=== PATIENT | male | born 1995 | race Two or more races ===

== ENCOUNTER 2018-02-06 21:03 | Emergency (ER) | payer SELFPAY ==
--- NOTE | 2018-02-06 21:08 | EDM.PDOC ---
ED HPI GENERAL MEDICAL PROBLEM - General Chief Complaint: Genitourinary Problem Stated Complaint: TESTICULAR PAIN Time Seen by Provider: 02/06/18 21:08 Source of Information: Reports: Patient - History of Present Illness INITIAL COMMENTS - FREE TEXT/NARRATIVE: HISTORY AND PHYSICAL: History of present illness: [Patient presents with 6 days of testicular pain right greater than left no fever nausea vomiting chills sweats no discharge denies injury or trauma] Review of systems: As per history of present illness and below otherwise all systems reviewed and negative. Past medical history: As per history of present illness and as reviewed below otherwise noncontributory. Surgical history: As per history of present illness and as reviewed below otherwise noncontributory. Social history: No reported history of drug or alcohol abuse. Family history: As per history of present illness and as reviewed below otherwise noncontributory. Physical exam: HEENT: Atraumatic, normocephalic, pupils reactive, negative for conjunctival pallor or scleral icterus, mucous membranes moist, throat clear, neck supple, nontender, trachea midline. Lungs: Clear to auscultation, breath sounds equal bilaterally, chest nontender. Heart: S1S2, regular, negative for clicks, rubs, or JVD. Abdomen: Soft, nondistended, nontender. Negative for masses or hepatosplenomegaly. Negative for costovertebral tenderness. Pelvis: Stable nontender. Genitourinary: Testicle on the right is more tender than the left slightly enlarged not high riding does not appear to be torsed this time Rectal: Deferred. Extremities: Atraumatic, negative for cords or calf pain. Neurovascular unremarkable. Neuro: Awake, alert, oriented. Cranial nerves II through XII unremarkable. Cerebellum unremarkable. Motor and sensory unremarkable throughout. Exam nonfocal. 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 Chavis ] Definitive disposition and diagnosis as appropriate pending reevaluation and review of above. - Related Data Allergies Allergy/AdvReac Type Severity Reaction Status Date / Time No Known Allergies Allergy Verified 07/23/17 14:37 Home Meds: Home Meds . [No Known Home Meds] 07/23/17 [History] Past Medical History - Past Health History Medical/Surgical History: Denies Medical/Surgical History Social & Family History - Caffeine Use Caffeine Use: Reports: None ED ROS GENERAL - Review of Systems Review Of Systems: ROS reveals no pertinent complaints other than HPI. ED EXAM, GENERAL - Physical Exam Exam: See Below Course - Vital Signs Last Recorded V/S: Last Vital Signs Temp 97.7 F 02/06/18 21:38 Pulse 74 02/06/18 21:38 Resp 16 02/06/18 21:38 BP 127/79 02/06/18 21:38 Pulse Ox 98 02/06/18 21:38 - Orders/Labs/Meds Orders: Active Orders 24 hr Category Date Time Status Scrotal Duplex Ltd [US] Routine Exams 02/06/18 Taken Scrotum and Contents [US] Stat Exams 02/06/18 21:41 Taken CHLAMYDIA AND GONORRHEA BY TMA Stat Lab 02/06/18 21:21 Received CULTURE URINE [RM] Stat Lab 02/06/18 21:21 Received UA W/MICROSCOPIC [URIN] Stat Lab 02/06/18 21:21 Ordered Labs: Laboratory Tests 02/06/18 Range/Units 21:21 Urine Color YELLOW Urine Appearance CLEAR Urine pH 7.0 (5.0-8.0) Ur Specific [place] 1.020 (1.001-1.035) Urine Protein NEGATIVE (NEGATIVE) mg/dL Urine Glucose (UA) NEGATIVE (NEGATIVE) mg/dL Urine Ketones NEGATIVE (NEGATIVE) mg/dL Urine Occult Blood NEGATIVE (NEGATIVE) Urine Nitrite NEGATIVE (NEGATIVE) Urine Bilirubin NEGATIVE (NEGATIVE) Urine Urobilinogen 0.2 (<2.0) EU/dL Ur Leukocyte Esterase NEGATIVE (NEGATIVE) Urine RBC 0-1 (0-2/HPF) Urine WBC 0-1 (0-5/HPF) Ur Epithelial Cells RARE (NONE-FEW) Urine Bacteria RARE (NEGATIVE) Meds: Medications Discontinued Medications Generic Name Dose Route Start Last Admin Trade Name Freq PRN Reason Stop Dose Admin Azithromycin 1,000 mg 02/06/18 23:07 Zithromax PO 02/06/18 23:08 NOW STA Ceftriaxone Sodium 250 mg/ 1 mls @ 1 mls/sec 02/06/18 23:07 Lidocaine HCl IM 02/06/18 23:08 ONETIME ONE Departure - Departure Time of Disposition: 23:35 Disposition: Home, Self-Care 01 Condition: Good Clinical Impression: Orchitis - Discharge Information Referrals: PCP,None [Primary Care Provider] - Forms: ED Department Discharge Additional Instructions: Follow-up with Dr. Chavis urology clinic 10:30 AM tomorrow No food water etc. nothing by mouth after midnight tonight until you are seen by Dr. Chavis in the morning Medication as prescribed [facility] - Urology [address] [place] [id number] The following information is given to patients seen in the emergency department who are being discharged to home. This information is to outline your options for follow-up care. We provide all patients seen in our emergency department with a follow-up referral. The need for follow-up, as well as the timing and circumstances, are variable depending upon the specifics of your emergency department visit. If you don't have a primary care physician on staff, we will provide you with a referral. We always advise you to contact your personal physician following an emergency department visit to inform them of the circumstance of the visit and for follow-up with them and/or the need for any referrals to a consulting specialist. The emergency department will also refer you to a specialist when appropriate. This referral assures that you have the opportunity for follow-up care with a specialist. All of these measure are taken in an effort to provide you with optimal care, which includes your follow-up. Under all circumstances we always encourage you to contact your private physician who remains a resource for coordinating your care. When calling for follow-up care, please make the office aware that this follow-up is from your recent emergency room visit. If for any reason you are refused follow-up, please contact the [facility] emergency department at and asked to speak to the emergency department charge nurse. - My Orders Last 24 Hours: My Active Orders 02/06/18 Scrotal Duplex Ltd [US] Routine 02/06/18 21:21 CHLAMYDIA AND GONORRHEA BY TMA Stat CULTURE URINE [RM] Stat UA W/MICROSCOPIC [URIN] Stat 02/06/18 21:41 Scrotum and Contents [US] Stat - Assessment/Plan Last 24 Hours: My Active Orders 02/06/18 Scrotal Duplex Ltd [US] Routine 02/06/18 21:21 CHLAMYDIA AND GONORRHEA BY TMA Stat CULTURE URINE [RM] Stat UA W/MICROSCOPIC [URIN] Stat 02/06/18 21:41 Scrotum and Contents [US] Stat
[2018-02-06] MEDS ORDERED: cefTRIAXone 250 MG in Lidocaine 1% 1 ML IM ONE (23:07)
[2018-02-06] MEDS ORDERED: Azithromycin 250 MG Tab PO STA (23:07)
--- NOTE | 2018-02-07 13:15 | US ---
EXAM DATE: 02/06/18 PATIENT'S AGE: 22 Patient: CINDI BERMUDEZ Facility: [place], [place] Site . Site : 1995 Study: US Testicle [id number] 10:52:10 PM Ordering Physician: Bryan Braxton Final Report: INDICATION: LT TESTICULAR PAIN X 6 DAYS SCROTAL ULTRASOUND Multiple sonographic images of the scrotum were performed. The testes appear mildly asymmetric in size with the right testis measuring 4.4 x 2.8 x 2.8 centimeters and the left testis measuring 3.3 x 2.6 x 1.9 centimeters. Testicular parenchyma is homogeneous bilaterally. No intratesticular masses are seen. Intratesticular Doppler blood flow is demonstrated bilaterally and is mildly decreased within the left testis compared to the right testis. The epididymides are within normal limits. No significant hydroceles are identified. IMPRESSION: Mildly decreased size of the left testis compared to the right testis, and mildly decreased Doppler blood flow within the left testis compared to the right testis. Differential considerations include mild partial or incomplete left testicular torsion, mild left testicular hypoplasia or atrophy, and right-sided orchitis. Clinical correlation is recommended and urology consultation should be considered. SENG MAHER MD [employer] Dictated by Luciano Maher MD @ 02/06/2018 11:09:59 PM Dictated by: Luciano Maher MD @ 02/06/2018 23:11:40 (Electronic Signature) Report Signed by Proxy. SADIA
--- NOTE | 2018-02-07 13:15 | US ---
EXAM DATE: 02/06/18 PATIENT'S AGE: 22 Patient: CINDI BERMUDEZ Facility: [place], [place] Site . Site : 1995 Study: US Testicle [id number]/2018 10:52:10 PM Ordering Physician: Bryan Braxton Final Report: INDICATION: LT TESTICULAR PAIN X 6 DAYS SCROTAL ULTRASOUND Multiple sonographic images of the scrotum were performed. The testes appear mildly asymmetric in size with the right testis measuring 4.4 x 2.8 x 2.8 centimeters and the left testis measuring 3.3 x 2.6 x 1.9 centimeters. Testicular parenchyma is homogeneous bilaterally. No intratesticular masses are seen. Intratesticular Doppler blood flow is demonstrated bilaterally and is mildly decreased within the left testis compared to the right testis. The epididymides are within normal limits. No significant hydroceles are identified. IMPRESSION: Mildly decreased size of the left testis compared to the right testis, and mildly decreased Doppler blood flow within the left testis compared to the right testis. Differential considerations include mild partial or incomplete left testicular torsion, mild left testicular hypoplasia or atrophy, and right-sided orchitis. Clinical correlation is recommended and urology consultation should be considered. SENG MAHER MD [employer] Dictated by Luciano Maher MD @ 02/06/2018 11:09:59 PM Dictated by: Luciano Maher MD @ 02/06/2018 23:11:40 (Electronic Signature) Report Signed by Proxy. SADIA
== END 2018-02-07 00:14 | disposition home or self-care (01) ==
LOC: MW.ED 21:03
DX: N45.2 Orchitis (principal)
CPT/HCPCS: 76870; 81001; 87086; 87491; 87591; 93976; 96372; 99284; A9270; J0696; J2001

== ENCOUNTER 2020-03-18 09:29 | Emergency (ER) | payer OTHER ==
--- NOTE | 2020-03-18 09:53 | EDM.PDOC ---
ED HPI GENERAL MEDICAL PROBLEM - General Chief Complaint: Respiratory Problem Stated Complaint: COUGH/SOB Time Seen by Provider: 03/18/20 09:32 - History of Present Illness INITIAL COMMENTS - FREE TEXT/NARRATIVE: History of present illness: Patient presents with 2 weeks of cough and chest pain with shortness of breath he denies any fever no congestion or runny nose he believes that all began after drinking a ontiveros soda. He has not had any significant travel or exposures that he is aware of no other medical problems although he states he had asthma as a child denies smoking nothing seems to make it better or worse Review of systems: As per history of present illness and below otherwise all systems reviewed and negative. Past medical history: As per history of present illness and as reviewed below otherwise noncontr ibutory. Surgical history: As per history of present illness and as reviewed below otherwise noncontributory. Social history: No reported history of drug or alcohol abuse. Family history: As per history of present illness and as reviewed below otherwise noncontributory. Physical exam: HEENT: Atraumatic, normocephalic, pupils reactive, negative for conjunctival pallor or scleral icterus, mucous membranes moist, throat clear, neck supple, nontender, trachea midline. Lungs: Clear to auscultation, breath sounds equal bilaterally, chest nontender. Heart: S1S2, regular, negative for clicks, rubs, or JVD. Abdomen: Soft, nondistended, nontender. Negative for masses or hepatosplenomegaly. Negative for costovertebral tenderness. Pelvis: Stable nontender. Genitourinary: Deferred. Rectal: Deferred. Extremities: Atraumatic, negative for cords or calf pain. Neurovascular unremarkable. Neuro: Awake, alert, oriented. Cranial nerves II through XII unremarkable. Cerebellum unremarkable. Motor and sensory unremarkable throughout. Exam nonfocal. Diagnostics: [] Therapeutics: [] Impression: Upper respiratory infection [] Plan: [] COVID testing and x-ray of the chest. Definitive disposition and diagnosis as appropriate pending reevaluation and review of above. chest Pain Score (Numeric/FACES): 4 - Related Data Allergies Allergy/AdvReac Type Severity Reaction Status Date / Time No Known Allergies Allergy Verified 03/18/20 09:57 Home Meds: Home Meds Benzonatate [Tessalon Perle] 100 mg PO Q6HR #30 capsule 03/18/20 [Rx] Naproxen Sodium [Anaprox DS] 550 mg PO BID #20 tab 03/18/20 [Rx] Past Medical History - Past Health History Medical/Surgical History: Denies Medical/Surgical History Social & Family History - Family History Family Medical History: Unobtainable - Caffeine Use Caffeine Use: Reports: None ED ROS GENERAL - Review of Systems Review Of Systems: See Below ED EXAM, GENERAL - Physical Exam Exam: See Below Course - Vital Signs Text/Narrative:: The patient was COVID tested was negative. A one-view portable chest was read and interpreted by me no acute cardiopulmonary pathology is evident. Patient stable to be discharged home with naproxen for his painful breathing and with some Tessalon for his cough he is encouraged to follow-up with a primary care doctor. Last Recorded V/S: Last Vital Signs Temp 36.4 C 03/18/20 09:40 Pulse 88 03/18/20 09:40 Resp 20 03/18/20 09:40 BP 120/76 03/18/20 09:40 Pulse Ox 93 L 03/18/20 09:40 - Orders/Labs/Meds Orders: Active Orders 24 hr Category Date Time Status Chest 1V Frontal [CR] Stat Exams 03/18/20 09:49 Ordered Labs: Laboratory Tests 03/18/20 Range/Units 10:00 SARS Virus RNA (PCR) NEGATIVE (NEGATIVE) Departure - Departure Time of Disposition: 11:25 Disposition: Home, Self-Care 01 Clinical Impression: Respiratory infection, upper Qualifiers: URI type: unspecified viral URI Qualified Code(s): J06.9 - Acute upper respiratory infection, unspecified - Discharge Information *PRESCRIPTION DRUG MONITORING PROGRAM REVIEWED*: Not Applicable *COPY OF PRESCRIPTION DRUG MONITORING REPORT IN PATIENT OLIVIA: Not Applicable Prescriptions: Naproxen Sodium [Anaprox DS] 550 mg PO BID #20 tab Benzonatate [Tessalon Perle] 100 mg PO Q6HR #30 capsule Instructions: Viral Respiratory Infection, [id number] Referrals: PCP,None [Primary Care Provider] - Forms: ED Department Discharge Additional Instructions: The following information is given to patients seen in the emergency department who are being discharged to home. This information is to outline your options for follow-up care. We provide all patients seen in our emergency department with a follow-up referral. The need for follow-up, as well as the timing and circumstances, are variable depending upon the specifics of your emergency department visit. If you don't have a primary care physician on staff, we will provide you with a referral. We always advise you to contact your personal physician following an emergency department visit to inform them of the circumstance of the visit and for follow-up with them and/or the need for any referrals to a consulting specialist. The emergency department will also refer you to a specialist when appropriate. This referral assures that you have the opportunity for follow-up care with a specialist. All of these measure are taken in an effort to provide you with optimal care, which includes your follow-up. Under all circumstances we always encourage you to contact your private physician who remains a resource for coordinating your care. When calling for follow-up care, please make the office aware that this follow-up is from your recent emergency room visit. If for any reason you are refused follow-up, please contact the [facility] Emergency Department at and asked to speak to the emergency department charge nurse. [facility] - Primary Care [address] [place] [address] [place] [address] Sepsis Event Note (ED) - Focused Exam Vital Signs: Vital Signs Temp Pulse Resp BP Pulse Ox 03/18/20 09:40 36.4 C 88 20 120/76 93 L - My Orders Last 24 Hours: My Active Orders 03/18/20 09:49 Chest 1V Frontal [CR] Stat - Assessment/Plan Last 24 Hours: My Active Orders 03/18/20 09:49 Chest 1V Frontal [CR] Stat
--- NOTE | 2020-03-18 11:35 | CR ---
Chest: Portable view of the chest was obtained. Comparison: Prior chest x-ray of 08/06/19. Heart size and mediastinum are normal. Lungs are clear with no acute parenchymal change. Bony structures are grossly intact. Impression: 1. Nothing acute is seen on portable chest x-ray. Diagnostic code #1 This report was dictated in MDT
== END 2020-03-18 11:35 | disposition home or self-care (01) ==
LOC: MW.ED 09:29
DX: J06.9 Acute upper respiratory infection, unspecified (principal); Z20.828 Contact with and (suspected) exposure to other viral communicable diseases
CPT/HCPCS: 71045; 71045-26; 99282; 99285-25; U0002

== ENCOUNTER 2020-03-20 22:50 | Emergency (ER) | payer SELFPAY ==
[2020-03-20] MEDS ORDERED: Albuterol 0.083% 2.5 MG/3 ML Neb Soln NEB ONE (23:26)
[2020-03-20] MEDS ORDERED: predniSONE 20 MG Tab PO ONE (23:26)
--- NOTE | 2020-03-20 23:28 | EDM.PDOC ---
ED HPI GENERAL MEDICAL PROBLEM - General Chief Complaint: Respiratory Problem Stated Complaint: SOB Time Seen by Provider: 03/20/20 23:02 - History of Present Illness INITIAL COMMENTS - FREE TEXT/NARRATIVE: History of present illness: She has been having trouble breathing for 3 days. He was an asthmatic as a child. He was seen here 2 days ago and had a negative COVID-19 test per patient and his sister. Patient continues have more trouble breathing with cough. He has trouble expectorating sputum. He feels tightness in his chest. The patient is worse with activity. He has no other systemic signs of illness. [] Review of systems: As per history of present illness and below otherwise all systems reviewed and negative. Past medical history: As per history of present illness and as reviewed below otherwise noncont ributory. Surgical history: As per history of present illness and as reviewed below otherwise noncontributory. Social history: No reported history of drug or alcohol abuse. Family history: As per history of present illness and as reviewed below otherwise noncontributory. Physical exam: Constitutional - well developed, well-nourished and in no acute distress HEENT - normocephalic, no evidence of trauma - external nose and mouth normal - no mass in neck and no JVD - mucosae moist EYES - full EOM, PERRL, no icterus - no evidence of inflammation, injection, or drainage Respiratory - no respiratory distress, equal bilateral expansion, lungs coarse wheezes throughout Cardiovascular - Regular Rhythm with S1 and S2 appreciated and no murmur, gallop or rub. Peripheral pulses symmetrically normal in all four extremities GI - abdomen soft without distension or organomegaly - normal bowel sounds - no guard or rebound Musculoskeletal no gross deformity of long bones or joints - no tenderness, swelling or edema Neurologic - Alert and oriented times four - CN II-XII grossly intact - motor sensory and coordination symmetrically normal Psychiatric - appropriate mood and affect with normal thought content Hematologic - No petechiae or purpura - mucosa appropriate color and sclera not pale - normal nail bed color and refill Integument - no rash or evidence of trauma - normal turgor Diagnostics: [] Therapeutics: [] Impression: [] Plan: [] Definitive disposition and diagnosis as appropriate pending reevaluation and review of above. chest and back Pain Score (Numeric/FACES): 8 - Related Data Allergies Allergy/AdvReac Type Severity Reaction Status Date / Time No Known Allergies Allergy Verified 03/20/20 23:17 Home Meds: Home Meds Benzonatate [Tessalon Perle] 100 mg PO Q6HR #30 capsule 03/18/20 [Rx] Naproxen Sodium [Anaprox DS] 550 mg PO BID #20 tab 03/18/20 [Rx] Albuterol [Ventolin HFA] 1 puff INH Q6HR PRN #1 inhaler 03/21/20 [Rx] predniSONE [Prednisone] 60 mg PO DAILY #18 tablet 03/21/20 [Rx] Past Medical History - Past Health History Medical/Surgical History: Denies Medical/Surgical History Respiratory History: Reports: Asthma - Past Surgical History Respiratory Surgical History: Reports: None Social & Family History - Family History Family Medical History: Noncontributory - Tobacco Use Smoking Status *Q: Former Smoker Used Tobacco, but Quit: Yes Month/Year Tobacco Last Used: "6months ago" - Caffeine Use Caffeine Use: Reports: Coffee - Recreational Drug Use Recreational Drug Use: No ED ROS GENERAL - Review of Systems Review Of Systems: Comprehensive ROS is negative, except as noted in HPI. ED EXAM, GENERAL - Physical Exam Exam: See Below Free Text/Narrative:: Physical exam as in the HPI. Course - Vital Signs Last Recorded V/S: Last Vital Signs Temp 97.1 F 03/20/20 23:06 Pulse 115 H 03/20/20 23:06 Resp 20 03/20/20 23:06 BP 138/87 03/20/20 23:06 Pulse Ox 93 L 03/20/20 23:06 - Orders/Labs/Meds Orders: Active Orders 24 hr Category Date Time Status Communication Order [RC] STAT Care 03/21/20 00:39 Ordered RT Aerosol Therapy [RC] ASDIRECTED Care 03/20/20 23:26 Active Meds: Medications Discontinued Medications Generic Name Dose Route Start Last Admin Trade Name Freq PRN Reason Stop Dose Admin Albuterol 2.5 mg 03/20/20 23:26 03/20/20 23:34 Proventil Neb Soln NEB 03/20/20 23:27 2.5 mg ONETIME ONE Administration Prednisone 60 mg 03/20/20 23:26 03/20/20 23:33 Prednisone PO 03/20/20 23:27 60 mg ONETIME ONE Administration Departure - Departure Time of Disposition: 00:40 Disposition: Home, Self-Care 01 Condition: Good Clinical Impression: Acute asthma - Discharge Information Prescriptions: predniSONE [Prednisone] 60 mg PO DAILY #18 tablet Albuterol [Ventolin HFA] 1 puff INH Q6HR PRN #1 inhaler PRN Reason: wheeze Instructions: Asthma, Adult, Shortness of Breath, Adult, [id number] Referrals: PCP,None [Primary Care Provider] - Forms: ED Department Discharge Additional Instructions: The following information is given to patients seen in the emergency department who are being discharged to home. This information is to outline your options for follow-up care. We provide all patients seen in our emergency department with a follow-up referral. The need for follow-up, as well as the timing and circumstances, are variable depending upon the specifics of your emergency department visit. If you don't have a primary care physician on staff, we will provide you with a referral. We always advise you to contact your personal physician following an emergency department visit to inform them of the circumstance of the visit and for follow-up with them and/or the need for any referrals to a consulting specialist. The emergency department will also refer you to a specialist when appropriate. This referral assures that you have the opportunity for follow-up care with a specialist. All of these measure are taken in an effort to provide you with optimal care, which includes your follow-up. Under all circumstances we always encourage you to contact your private physician who remains a resource for coordinating your care. When calling for follow-up care, please make the office aware that this follow-up is from your recent emergency room visit. If for any reason you are refused follow-up, please contact the [facility] Emergency Department at and asked to speak to the emergency department charge nurse. [facility] - Primary Care [address] [place] [id number] [facility] [address] [place] [id number] Sepsis Event Note (ED) - Evaluation Sepsis Screening Result: No Definite Risk - Focused Exam Vital Signs: Vital Signs Temp Pulse Resp BP Pulse Ox 03/20/20 23:06 97.1 F 115 H 20 138/87 93 L - My Orders Last 24 Hours: My Active Orders 03/20/20 23:26 RT Aerosol Therapy [RC] ASDIRECTED 03/21/20 00:39 Communication Order [RC] STAT - Assessment/Plan Last 24 Hours: My Active Orders 03/20/20 23:26 RT Aerosol Therapy [RC] ASDIRECTED 03/21/20 00:39 Communication Order [RC] STAT
== END 2020-03-21 01:51 | disposition home or self-care (01) ==
LOC: MW.ED 22:50
DX: J45.909 Unspecified asthma, uncomplicated (principal); Z79.899 Other long term (current) drug therapy; Z87.891 Personal history of nicotine dependence
CPT/HCPCS: 99285; A9270; 99282

== ENCOUNTER 2022-06-28 22:35 | Emergency (ER) | payer OTHER ==
[2022-06-28] MEDS ORDERED: predniSONE 20 MG Tab PO ONE (22:55)
[2022-06-28] MEDS ORDERED: Ibuprofen 600 MG Tab PO ONE (22:55)
[2022-06-28] MEDS ORDERED: Albuterol/Ipratropium 3.0-0.5 MG/3 ML Neb Soln INH ONE (22:55)
== END 2022-06-28 23:45 | disposition home or self-care (01) ==
LOC: MW.ED 22:35
DX: J45.901 Unspecified asthma with (acute) exacerbation (principal)
CPT/HCPCS: 99284; A9270; 99283; J7620-GY

== ENCOUNTER 2023-03-23 21:46 | Inpatient (IN) | payer SELFPAY ==
[2023-03-23] MEDS ORDERED: Albuterol/Ipratropium 3.0-0.5 MG/3 ML Neb Soln NEB ONE (21:54)
[2023-03-23] MEDS ORDERED: Sodium Chloride 0.9% 2.5 ML Syringe FLUSH PRN (22:39)
[2023-03-23] MEDS ORDERED: Sodium Chloride 0.9% 10 ML Syringe FLUSH PRN (22:39)
[2023-03-23] MEDS ORDERED: methylPREDNISolone Sodium Succinate 40 MG/1 ML SDV IVPUSH ONE (22:44)
[2023-03-23 23:01] LABS: BASOPHILS ABSOLUTE AUTO 0.1 K/uL (0.0-0.1); BASOPHILS PERCENT AUTO 0.4 % (0.0-1.5); EOSINOPHILS ABSOLUTE AUTO 1.7 K/uL (0.0-0.7); EOSINOPHILS PERCENT AUTO 9.8 % (0.0-7.0); HEMOGLOBIN 15.9 g/dL (13.0-17.0); LYMPHOCYTES ABSOLUTE AUTO 4.1 K/uL (0.6-2.4); MEAN CORPUSCULAR HEMOGLOBIN 30.2 pg (27.0-32.0); MEAN CORPUSCULAR HGB CONC 34.6 g/dL (31.0-37.0); MEAN CORPUSCULAR VOLUME 87.3 fL (80.0-98.0); MONOCYTES ABSOLUTE AUTO 0.8 K/uL (0.0-0.8); MONOCYTES PERCENT AUTO 4.8 % (0.0-15.0); NEUTROPHILS ABSOLUTE AUTO 10.4 K/uL (1.4-5.7); NRBC ABSOLUTE 0 K/uL; PLATELET COUNT,PLT 272 K/uL (150-400); RED BLOOD CELL COUNT 5.27 M/uL (4.50-5.90); WHITE BLOOD CELL COUNT,WBC 17.11 K/uL (4.0-11.0)
[2023-03-23] MEDS ORDERED: cefTRIAXone 2 GM in Sodium Chloride 0.9% 50 ML IV ONE (23:11)
[2023-03-23] MEDS ORDERED: Azithromycin 500 MG in Sodium Chloride 0.9% 250 ML IV ONE (23:11)
[2023-03-23] MEDS ORDERED: Sodium Chloride 0.9% 1,000 ML IV SCH (23:15)
[2023-03-23 23:30] LABS: A/G RATIO 1.1 (0.9-1.6); ALANINE AMINOTRANSFERASE,ALT 54 IU/L (14-63); ALBUMIN 4.1 g/dL (3.4-5.0); ALKALINE PHOSPHATASE 65 U/L (46-116); ASPARTATE AMNIOTRANSFERASE,AST 22 IU/L (15-37); BILIRUBIN TOTAL 0.9 mg/dL (0.2-1.0); BLOOD UREA NITROGEN,BUN 15 mg/dL (7.0-18.0); CALCIUM 9.2 mg/dL (8.5-10.1); CARBON DIOXIDE,CO2 22.9 mmol/L (21.0-32.0); CHLORIDE,CL 105 mmol/L (98-107); EST CRCL DRUG DOSING (CG) 120.71 mL/min; GLUCOSE RANDOM 101 mg/dL (74-106); POTASSIUM,K 3.6 mmol/L (3.5-5.1); PROTEIN TOTAL,TP 7.7 g/dL (6.4-8.2); SODIUM,NA 142 mmol/L (136-148)
[2023-03-23 23:35] LABS: ESTIMATED GFR 105 mL/min (>60)
[2023-03-24 00:11] LABS: CORONAVIRUS COVID-19 NAA NEGATIVE (NEGATIVE); INFLUENZA A NAA NEGATIVE (NEGATIVE); INFLUENZA B NAA NEGATIVE (NEGATIVE); RESPIRATORY SYNCYTIAL VIR NAA NEGATIVE (NEGATIVE)
[2023-03-24] MEDS ORDERED: methylPREDNISolone Sodium Succinate 40 MG/1 ML SDV IVPUSH SCH ×2 (12:30→21:00)
[2023-03-24] MEDS: Albuterol/Ipratropium 3.0-0.5 MG/3 ML Neb Soln NEB SCH ×2 (14:03→18:42)
[2023-03-24] MEDS: cefTRIAXone 1 GM in Sodium Chloride 0.9% 50 ML IV SCH (21:08)
[2023-03-24] MEDS: Azithromycin 500 MG in Sodium Chloride 0.9% 250 ML IV SCH (22:00)
[2023-03-25] MEDS: Albuterol/Ipratropium 3.0-0.5 MG/3 ML Neb Soln NEB SCH ×4 (00:07→18:32)
[2023-03-25 06:21] LABS: BASOPHILS PERCENT AUTO 0.1 % (0.0-1.5); EOSINOPHILS PERCENT AUTO 0.1 % (0.0-7.0); HEMATOCRIT 45.5 % (38.0-50.0); HEMOGLOBIN 15.4 g/dL (13.0-17.0); LYMPHOCYTES ABSOLUTE AUTO 1.1 K/uL (0.6-2.4); LYMPHOCYTES PERCENT AUTO 7.8 % (16.0-40.0); MEAN CORPUSCULAR HEMOGLOBIN 29.4 pg (27.0-32.0); MEAN CORPUSCULAR HGB CONC 33.8 g/dL (31.0-37.0); MEAN CORPUSCULAR VOLUME 86.8 fL (80.0-98.0); MONOCYTES ABSOLUTE AUTO 0.4 K/uL (0.0-0.8); MONOCYTES PERCENT AUTO 3.1 % (0.0-15.0); NEUTROPHILS ABSOLUTE AUTO 12.2 K/uL (1.4-5.7); NEUTROPHILS PERCENT AUTO 88.9 % (48.0-80.0); NRBC ABSOLUTE 0 K/uL; PLATELET COUNT,PLT 322 K/uL (150-400); RED BLOOD CELL COUNT 5.24 M/uL (4.50-5.90); WHITE BLOOD CELL COUNT,WBC 13.66 K/uL (4.0-11.0)
[2023-03-25 06:39] LABS: CALCIUM 9.2 mg/dL (8.5-10.1); CARBON DIOXIDE,CO2 26.9 mmol/L (21.0-32.0); CREATININE 0.9 mg/dL (0.8-1.3); EST CRCL DRUG DOSING (CG) 134.12 mL/min; POTASSIUM,K 4.3 mmol/L (3.5-5.1)
[2023-03-25] MEDS ORDERED: Benzonatate 100 MG Cap PO PRN (10:39)
[2023-03-25] MEDS: guaiFENesin 600 MG Tab.ER PO SCH ×2 (11:24→20:49)
[2023-03-25] MEDS ORDERED: Benzocaine/Cetylpyridinium/Menthol Lozenge MUCMEM PRN (19:03)
[2023-03-25] MEDS: cefTRIAXone 1 GM in Sodium Chloride 0.9% 50 ML IV SCH (20:50)
[2023-03-25] MEDS: Azithromycin 500 MG in Sodium Chloride 0.9% 250 ML IV SCH (21:41)
[2023-03-25] MEDS ORDERED: Acetaminophen 325 MG Tab PO PRN (22:16)
[2023-03-26] MEDS: Albuterol/Ipratropium 3.0-0.5 MG/3 ML Neb Soln NEB SCH ×5 (00:33→23:35)
[2023-03-26] MEDS ORDERED: Albuterol 8 GM Inhaler INH PRN ×2 (04:19→04:25)
[2023-03-26] MEDS ORDERED: Albuterol 8 GM Inhaler ONE (04:27)
[2023-03-26] MEDS: guaiFENesin 600 MG Tab.ER PO SCH ×2 (08:28→20:16)
[2023-03-26] MEDS: predniSONE 10 MG Tab PO SCH (08:28)
[2023-03-26] MEDS: Albuterol 8 GM Inhaler INH PRN (08:41)
[2023-03-26 09:46] LABS: BASOPHILS ABSOLUTE AUTO 0.1 K/uL (0.0-0.1); BASOPHILS PERCENT AUTO 0.4 % (0.0-1.5); EOSINOPHILS ABSOLUTE AUTO 1.1 K/uL (0.0-0.7); EOSINOPHILS PERCENT AUTO 7.4 % (0.0-7.0); HEMATOCRIT 46.3 % (38.0-50.0); HEMOGLOBIN 15.7 g/dL (13.0-17.0); LYMPHOCYTES ABSOLUTE AUTO 3.9 K/uL (0.6-2.4); LYMPHOCYTES PERCENT AUTO 27.4 % (16.0-40.0); MEAN CORPUSCULAR HGB CONC 33.9 g/dL (31.0-37.0); MEAN CORPUSCULAR VOLUME 88.5 fL (80.0-98.0); MONOCYTES ABSOLUTE AUTO 0.9 K/uL (0.0-0.8); MONOCYTES PERCENT AUTO 6.2 % (0.0-15.0); NEUTROPHILS ABSOLUTE AUTO 8.3 K/uL (1.4-5.7); NEUTROPHILS PERCENT AUTO 58.6 % (48.0-80.0); NRBC ABSOLUTE 0 K/uL; PLATELET COUNT,PLT 259 K/uL (150-400); RED BLOOD CELL COUNT 5.23 M/uL (4.50-5.90); WHITE BLOOD CELL COUNT,WBC 14.18 K/uL (4.0-11.0)
[2023-03-26] MEDS: cefTRIAXone 1 GM in Sodium Chloride 0.9% 50 ML IV SCH (20:16)
[2023-03-26] MEDS: Azithromycin 500 MG in Sodium Chloride 0.9% 250 ML IV SCH (20:52)
[2023-03-27] MEDS: Albuterol/Ipratropium 3.0-0.5 MG/3 ML Neb Soln NEB SCH ×2 (06:29→13:17)
[2023-03-27] MEDS: guaiFENesin 600 MG Tab.ER PO SCH (09:21)
[2023-03-27] MEDS: predniSONE 10 MG Tab PO SCH (09:21)
[2023-03-27 10:09] LABS: BASOPHILS ABSOLUTE AUTO 0.1 K/uL (0.0-0.1); BASOPHILS PERCENT AUTO 0.4 % (0.0-1.5); EOSINOPHILS ABSOLUTE AUTO 1.6 K/uL (0.0-0.7); EOSINOPHILS PERCENT AUTO 11.4 % (0.0-7.0); HEMATOCRIT 48.5 % (38.0-50.0); HEMOGLOBIN 16.6 g/dL (13.0-17.0); LYMPHOCYTES ABSOLUTE AUTO 4.2 K/uL (0.6-2.4); LYMPHOCYTES PERCENT AUTO 29.7 % (16.0-40.0); MEAN CORPUSCULAR HEMOGLOBIN 30.3 pg (27.0-32.0); MEAN CORPUSCULAR HGB CONC 34.2 g/dL (31.0-37.0); MEAN CORPUSCULAR VOLUME 88.5 fL (80.0-98.0); MONOCYTES ABSOLUTE AUTO 0.9 K/uL (0.0-0.8); MONOCYTES PERCENT AUTO 6.7 % (0.0-15.0); NEUTROPHILS ABSOLUTE AUTO 7.3 K/uL (1.4-5.7); NEUTROPHILS PERCENT AUTO 51.8 % (48.0-80.0); NRBC ABSOLUTE 0 K/uL; PLATELET COUNT,PLT 289 K/uL (150-400); RED BLOOD CELL COUNT 5.48 M/uL (4.50-5.90); WHITE BLOOD CELL COUNT,WBC 14.13 K/uL (4.0-11.0)
[2023-03-27 11:57] LABS: CALCIUM 9.4 mg/dL (8.5-10.1); CARBON DIOXIDE,CO2 25.3 mmol/L (21.0-32.0); CREATININE 0.8 mg/dL (0.8-1.3); EST CRCL DRUG DOSING (CG) 150.89 mL/min; POTASSIUM,K 3.6 mmol/L (3.5-5.1)
[2023-03-27] MEDS: Albuterol 8 GM Inhaler INH PRN (13:14)
== END 2023-03-27 14:15 | disposition home or self-care (01) | DRG 193 ==
LOC: MW.ED 21:46 → MW.MS 03-24 01:21 → OBSVTOIN 03-26 10:34 → MW.MS 03-26 11:54
PROVIDERS: ADMIT Hospitalist; ATTEND Hospitalist
DX: J18.9 Pneumonia, unspecified organism (principal); J96.01 Acute respiratory failure with hypoxia; J45.901 Unspecified asthma with (acute) exacerbation; Z20.822 Contact with and (suspected) exposure to COVID-19; Z86.16 Personal history of COVID-19; Z79.899 Other long term (current) drug therapy; Z79.51 Long term (current) use of inhaled steroids
CPT/HCPCS: 0241U; 36415; 71045; 71045-26; 80048; 80053; 82947; 83605; 83880; 84484; 85025; 87040; 87651-QW; 93005; 94640; 96365; 96366; 96367; 96375; 96376; 99284; 99285-25; A9270-GY; G0008; G0378; J0456; J0696; J2920; J3490; J7030; J7050; J7620-GY

== ENCOUNTER 2023-05-27 22:55 | Emergency (ER) | payer SELFPAY ==
[2023-05-27] MEDS ORDERED: Albuterol/Ipratropium 3.0-0.5 MG/3 ML Neb Soln NEB ONE (22:59)
[2023-05-27] MEDS ORDERED: predniSONE 10 MG Tab PO ONE (22:59)
== END 2023-05-28 00:18 | disposition home or self-care (01) ==
LOC: MW.ED 22:55
DX: J45.901 Unspecified asthma with (acute) exacerbation (principal)
CPT/HCPCS: 71046; 99285; A9270; 99283; J7620-GY

== ENCOUNTER 2024-04-12 22:07 | Emergency (ER) | payer SELFPAY ==
[2024-04-12] MEDS: Ibuprofen 600 MG Tab PO ONE (22:43)
[2024-04-12] MEDS: Cephalexin 500 MG Cap PO ONE (22:43)
[2024-04-12] MEDS: traMADol 50 MG Tab PO ONE (22:43)
== END 2024-04-12 22:47 | disposition home or self-care (01) ==
LOC: MW.ED 22:07
DX: K04.7 Periapical abscess without sinus (principal); Z75.8 Other problems related to medical facilities and other health care
CPT/HCPCS: 99282; A9270; 99283